=== PATIENT | female | born 1950 | race Caucasian/White ===

== ENCOUNTER 2021-01-01 01:24 | Observation (INO) ==
[2021-01-01] MEDS ORDERED: Naloxone 0.4 MG/ML INJ IVP PRN (03:34)
[2021-01-01] MEDS ORDERED: Ondansetron 4 MG/2 ML VIAL IVP PRN ×2 (03:34→09:41)
[2021-01-01] MEDS ORDERED: Melatonin 3 MG TABLET PO PRN (03:34)
[2021-01-01] MEDS ORDERED: 0.9 % Sodium Chloride 1,000 ML IVC ONE (05:41)
[2021-01-01 06:14] LABS: Basophils % 0.2 %; Eosinophils % 0.4 %; Hematocrit 31.9 % (35.3-44.9); Hemoglobin 10.5 g/dL (11.5-15.4); Immature Granulocytes % 0.5 % (0-4); Lymphocytes # 1.5 K/mcL (0.6-4.6); Lymphocytes % 13.7 %; Mean Corpuscular HGB Conc 32.9 g/dL (31.6-35.5); Mean Corpuscular Hemoglobin 29.6 pg (28.0-33.3); Mean Corpuscular Volume 89.9 fL (83.0-100.0); Mean Platelet Volume 9.9 fL (9.4-12.4); Monocytes # 0.7 K/mcL (0.0-1.3); Monocytes % 6.3 %; Neutrophils # 8.6 K/mcL (1.6-8.9); Platelet Count 167 K/mcL (140-400); Red Blood Count 3.55 M/mcL (3.82-4.97); Red Cell Distribution Width 13.2 % (11.5-14.5); Segmented Neutrophils % 78.9 %; White Blood Count 10.9 K/mcL (4.3-11.1)
[2021-01-01 06:21] LABS: INR 1.4; Prothrombin Time 15.7 Seconds (9.4-12.1)
[2021-01-01 06:37] LABS: Alanine Aminotransferase 173 Units/L (7-52); Albumin 3.7 g/dL (3.5-5.7); Albumin/Globulin Ratio 1.4 (1.1-2.2); Alkaline Phosphatase 144 Units/L (34-104); Aspartate Amino Transferase 163 Units/L (13-39); BUN/Creatinine Ratio 16 (6-26); Bilirubin,Indirect 1.4 mg/dL (0.0-1.0); Bilirubin,Total 4.4 mg/dL (0.3-1.0); Blood Urea Nitrogen 15 mg/dL (8-23); Calcium 8.6 mg/dL (8.6-10.3); Carbon Dioxide 25 mEq/L (23-29); Chloride 105 mEq/L (98-107); Globulin 2.7 g/dL (2.4-3.5); Glucose 115 mg/dL (70-105); Osmolality,Calculated 286 (280-300); Potassium 3.9 mEq/L (3.5-5.1); Sodium 137 mEq/L (136-145); Total Protein 6.4 g/dL (6.4-8.9); eGFR For African Americans > 60 (> 60); eGFR For Non-African Americans 59 (> 60)
[2021-01-01 06:41] LABS: Chol/HDL Ratio 3.9 (0-4.9); Cholesterol 109 mg/dL (< 200); HDL Cholesterol 28 mg/dL (40-59); LDL Cholesterol,Calculated 61 mg/dL (< 100); Magnesium 1.8 mg/dL (1.6-2.6); Triglycerides 98 mg/dL (< 150)
[2021-01-01 08:13] LABS: Troponin I < 0.03 ng/mL (< 0.04)
[2021-01-01] MEDS: MetroNIDAZOLE 500 MG/100 ML 500 MG/100 ML BAG IVPB SCH ×2 (08:20→17:53)
[2021-01-01] MEDS ORDERED: cefTRIAXone 1,000 MG in Water for inj. (sterile) 10 ML IVP SCH (09:00)
[2021-01-01] MEDS ORDERED: *HR* OxyCODONE Immed Rel 5 MG TABLET PO PRN (09:41)
[2021-01-01] MEDS ORDERED: Promethazine 6.25 MG in Water for inj. (sterile) 20 ML IVPB PRN (09:41)
[2021-01-01] MEDS ORDERED: *HR* FentaNYL (PF) 100 MCG/2 ML VIAL IVP PRN (09:41)
[2021-01-01] MEDS ORDERED: Lidocaine HCL 4 ML Topical Solution (Laryng-O-Jet Kit Sterile Pak) TP ONE (10:15)
[2021-01-01] MEDS ORDERED: *HR* Succinylcholine 200 MG/10 ML VIAL IVP ONE (10:17)
[2021-01-01] MEDS ORDERED: Lidocaine -MPF 2% 5 ML VIAL ONE (10:19)
[2021-01-01] MEDS ORDERED: *HR* FentaNYL (PF) 100 MCG/2 ML VIAL ONE (10:19)
[2021-01-01] MEDS ORDERED: Ondansetron 4 MG/2 ML VIAL ONE (10:20)
[2021-01-01 11:41] VITALS: TEMP 97.6
[2021-01-01 14:51] VITALS: BP 133/72; PULSE 77; O2SAT 94
== END 2021-01-01 18:30 | disposition home or self-care (01) ==
LOC: 3ANU → SUATTDRO 03:03
PROVIDERS: ADMIT Family Medicine; ATTEND Internal Medicine